=== PATIENT | male | born 1995 | race African-American/Black ===

== ENCOUNTER 2017-07-17 10:33 | Emergency (ER) | payer SELFPAY ==
[2017-07-17] MEDS: PENICILLIN G BENZATHINE LA 1,200,000 UNIT/2 ML DISP.SYRIN. IM (11:14)
== END 2017-07-17 11:16 | disposition home or self-care (01) ==
LOC: ER 10:33
DX: J02.0 Streptococcal pharyngitis (principal)
CPT/HCPCS: 96372; 99283; J0561

== ENCOUNTER 2018-05-22 00:49 | Emergency (ER) | payer SELFPAY ==
[~2018-05-22] VITALS: Ht 182.9 cm; Wt 104.3 kg
[~2018-05-22 00:49] MED LIST: IBUP-1007 PO
[2018-05-22 01:00] VITALS: BP 143/77
--- NOTE | 2018-05-22 01:07 | PHYS DOC ---
Past Medical History Past Medical History: No Pertinent History Past Surgical History: No Surgical History Alcohol Use: None Drug Use: None Adult General Chief Complaint Chief Complaint: ANKLE PROBLEM HPI HPI Patient is a 23 year old [-[place] male presents with an acute isolated left ankle injury. Patient was walking upstairs when he cut his toe inverted and twisted his left ankle. Injury occurred hours prior to ED arrival. Patient reports pain with ambulation. No other acute symptoms or complaints.[] Review of Systems Review of Systems Review symptoms as per history of present illness. All other review symptoms are negative. All other systems were reviewed and found to be within normal limits, except as documented in this note. Current Medications Current Medications Current Medications Medications (Trade) Dose Ordered Sig/Ling Start Time Stop Time Status Last Admin Dose Admin Ibuprofen (Motrin) 600 mg 1X ONCE 05/22/18 01:15 05/22/18 01:16 DC 05/22/18 01:15 600 MG Oxycodone/ Acetaminophen (Percocet 10325) 1 tab 1X ONCE 05/22/18 01:15 05/22/18 01:16 DC 05/22/18 01:15 1 TAB Allergies Allergies Allergies Coded Allergies Type Severity Reaction Last Updated Verified No Known Drug Allergies 03/03/16 No Physical Exam Physical Exam Constitutional: Well developed, well nourished, moderate discomfort secondary to pain. [] Extremities: No tenderness, ankle, lateral malleolus tenderness swelling, no deformity, motor function intact. Pulses 2+. Lantus testing not performed due to patient discomfort.[] Neurologic: Alert and oriented X 3, normal motor function, normal sensory function, no focal deficits noted. [] Psychologic: Affect normal, judgement normal, mood normal. [] Current Patient Data Vital Signs Vital Signs Date Time Temp Pulse Resp B/P (MAP) Pulse Ox O2 Delivery O2 Flow Rate FiO2 05/22/18 01:15 Room Air 05/22/18 01:00 98.6 93 143/77 (99) 99 98.6 EKG EKG [] Radiology/Procedures Radiology/Procedures [Left ankle x-ray: No obvious displaced fracture on preliminary ED review.] Course & Med Decision Making Course & Med Decision Making Pertinent Labs and Imaging studies reviewed. (See chart for details) [Patient pain controlled, splint placed, patient instructed to remain nonweightbearing and follow-up with PCP for work release. ] Dragon Disclaimer Dragon Disclaimer This electronic medical record was generated, in whole or in part, using a voice recognition dictation system. Departure Departure Impression: Primary Impression: Sprain of left ankle Disposition: HOME, SELF-CARE Condition: GOOD Referrals: NO PCP (PCP) Scripts Hydrocodone/Apap 10-325 (NORCO 10-325 TABLET) 1 Each Tablet 1 TAB PO Q8HRS PRN for PAIN MDD 6, #10 TAB 0 Refills Prov: SCOT CHOPRA DO 05/22/18 SCOT CHOPRA DO May 22, 2018 01:07
[2018-05-22] MEDS ORDERED: oxyCODONE/APAP 10/325 1 TAB TABLET PO ONE (01:15)
[2018-05-22] MEDS ORDERED: IBUPROFEN 600 MG TABLET. PO ONE (01:15)
[2018-05-22] MEDS ORDERED: HYDR-3135 PO (01:33)
--- NOTE | 2018-05-22 03:10 | RAD ---
Left ankle 3 views. HISTORY: Pain, trauma 3 views were taken of the left ankle. There is not evidence of an acute fracture or acute osseous abnormality. There is mild soft tissue swelling. IMPRESSION: 1. No acute fracture noted in the left ankle. Electronically signed by: Williams Richards MD (05/22/2018 3:05 AM) [facility]
== END 2018-05-22 02:10 | disposition home or self-care (01) ==
LOC: ER 00:49
DX: S93.492A Sprain of other ligament of left ankle, initial encounter (principal); X50.1XXA Overexertion from prolonged static or awkward postures, initial encounter; Y93.01 Activity, walking, marching and hiking; Y92.89 Other specified places as the place of occurrence of the external cause; Y99.8 Other external cause status
CPT/HCPCS: 29515; 73610; 99283

== ENCOUNTER → 2020-08-30 | Outpatient (CLI) | payer BC ==
[~2020-08-30] MED LIST changes: +HYDR-3135 PO
--- NOTE | 2020-08-30 13:42 | KCIC ---
EXAM: Chest, 2 views. HISTORY: Cough. COMPARISON: None. FINDINGS: 2 views of the chest are obtained. There is no infiltrate, pleural effusion or pneumothorax . The heart is normal in size. IMPRESSION: No acute pulmonary finding. Electronically signed by: Lia Mcpherson MD (08/30/2020 1:39 PM) [id number]
== END ==
LOC: KCIC 13:01
PROVIDERS: ATTEND Family Medicine
DX: R05 Cough (principal)
CPT/HCPCS: 71046

== ENCOUNTER 2021-02-10 07:01 | Emergency (ER) | payer BC ==
[~2021-02-10] VITALS: Ht 185.4 cm; Wt 109.4 kg
--- NOTE | 2021-02-10 08:29 | ED.ADGEN ---
Past Medical History Past Medical History: No Pertinent History Past Surgical History: No Surgical History Smoking Status: Current Every Day Smoker Additional Information: smokes marijuana occasionally Alcohol Use: None Drug Use: None Social History Narrative: weekly General Adult EDM: Chief Complaint: ABDOMINAL PAIN HPI: HPI: Patient is a 25 year old male coming in for abdominal pain and diarrhea for the past 3 days. Patient presents today to be sent home from work due to the pain. Patient states he was afebrile at his work temperature scanner but has a temperature of 101 here. Patient states the diarrhea is nonmelanous or bloody but has had small amount of bleeding from his rectum and pain. Patient has any nausea or vomiting, denies any change in urination or hematuria, denies any cough. Patient does not have his Covid vaccines. He states that night before his symptoms began he had had a medium pressure steak. Review of Systems: Review of Systems: All other systems within normal limits except for as noted in the HPI Current Medications: Current Medications Medications (Trade) Dose Ordered Sig/Ling Start Time Stop Time Status Last Admin Dose Admin Iohexol (Omnipaque 300 Mg/ml) 75 ml 1X ONCE 02/10/21 09:30 02/10/21 09:31 DC 02/10/21 09:29 75 ML Ketorolac Tromethamine (Toradol 15mg Vial) 15 mg 1X ONCE 02/10/21 09:15 02/10/21 09:16 DC 02/10/21 09:18 15 MG Allergies: Allergies: Allergies Coded Allergies Type Severity Reaction Last Updated Verified No Known Drug Allergies 02/10/21 No Physical Exam: PE: Constitutional: Well developed, well nourished, no acute distress, non-toxic appearance. [] HENT: Normocephalic, atraumatic, bilateral external ears normal, nose normal. [] Eyes: PERRLA, conjunctiva normal, no discharge. [] Neck: No rigidity, supple, no stridor. [] Cardiovascular: Regular rate and rhythm, brisk cap refill [] Lungs & Thorax: Non labored symmetric respirations, no tachypnea or respiratory distress [] Abdomen: Soft, nondistended, epigastric tenderness without guarding or rebound.. Skin: Warm, dry, no erythema, no rash. [] Back: Unremarkable Extremities: No deformities, range of motion grossly intact, no lower extremity edema [] Neurologic: Alert and oriented X 3, no focal deficits noted. [] Psychologic: Affect normal, judgement normal, mood normal. [] Current Patient Data: Labs: Laboratory Tests Test 02/10/21 08:05 02/10/21 09:00 White Blood Count 12.5 x10^3/uL (4.0-11.0) H Red Blood Count 4.66 x10^6/uL (4.30-5.70) Hemoglobin 13.9 g/dL (13.0-17.5) Hematocrit 40.3 % (39.0-53.0) Mean Corpuscular Volume 87 fL (79-100) Mean Corpuscular Hemoglobin 30 pg (25-35) Mean Corpuscular Hemoglobin Concent 35 g/dL (31-37) Red Cell Distribution Width 13.5 % (11.5-14.5) Platelet Count 235 x10^3/uL (140-400) Neutrophils (%) (Auto) 82 % (31-73) H Lymphocytes (%) (Auto) 7 % (24-48) L Monocytes (%) (Auto) 11 % (0-9) H Eosinophils (%) (Auto) 0 % (0-3) Basophils (%) (Auto) 0 % (0-3) Neutrophils # (Auto) 10.3 x10^3/uL (1.8-7.7) H Lymphocytes # (Auto) 0.9 x10^3/uL (1.0-4.8) L Monocytes # (Auto) 1.3 x10^3/uL (0.0-1.1) H Eosinophils # (Auto) 0.0 x10^3/uL (0.0-0.7) Basophils # (Auto) 0.0 x10^3/uL (0.0-0.2) Sodium Level 139 mmol/L (136-145) Potassium Level 3.5 mmol/L (3.5-5.1) Chloride Level 103 mmol/L (98-107) Carbon Dioxide Level 26 mmol/L (21-32) Anion Gap 10 (6-14) Blood Urea Nitrogen 9 mg/dL (8-26) Creatinine 0.9 mg/dL (0.7-1.3) Estimated GFR (Cockcroft-Gault) 124.4 BUN/Creatinine Ratio 10 (6-20) Glucose Level 115 mg/dL (70-99) H Calcium Level 9.0 mg/dL (8.5-10.1) Total Bilirubin 0.4 mg/dL (0.2-1.0) Aspartate Amino Transferase (AST) 23 U/L (15-37) Alanine Aminotransferase (ALT) 33 U/L (16-63) Alkaline Phosphatase 67 U/L (46-116) Total Protein 7.5 g/dL (6.4-8.2) Albumin 3.7 g/dL (3.4-5.0) Albumin/Globulin Ratio 1.0 (1.0-1.7) Lipase 90 U/L (73-393) Urine Collection Type Void Urine Color Yellow Urine Clarity Clear Urine pH 7.0 (<5.0-8.0) Urine Specific [place] 1.025 (1.000-1.030) Urine Protein Negative mg/dL (NEG-TRACE) Urine Glucose (UA) Negative mg/dL (NEG) Urine Ketones (Stick) Negative mg/dL (NEG) Urine Blood Negative (NEG) Urine Nitrite Negative (NEG) Urine Bilirubin Negative (NEG) Urine Urobilinogen Dipstick 0.2 mg/dL (0.2 mg/dL) Urine Leukocyte Esterase Negative (NEG) Urine RBC 0 /HPF (0-2) Urine WBC Occ /HPF (0-4) Urine Bacteria 0 /HPF (0-FEW) Urine Mucus Marked /LPF Laboratory Tests 02/10/21 08:05 Laboratory Tests 02/10/21 08:05 Vital Signs: Vital Signs Date Time Temp Pulse Resp B/P (MAP) Pulse Ox O2 Delivery O2 Flow Rate FiO2 02/10/21 09:34 94 16 146/70 (95) 98 Room Air 02/10/21 07:49 101.0 101.0 EKG: EKG: [] Heart Score: C/O Chest Pain: No Risk Factors: Risk Factors: DM, Current or recent (<one month) smoker, HTN, HLP, family history of CAD, obesity. Risk Scores: Score 0 - 3: 2.5% MACE over next 6 weeks - Discharge Home Score 4 - 6: 20.3% MACE over next 6 weeks - Admit for Clinical Observation Score 7 - 10: 72.7% MACE over next 6 weeks - Early Invasive Strategies Radiology/Procedures: Radiology/Procedures: [facility] [address] [place] [address] IMAGING REPORT Signed PATIENT: KAYY OSBORNACCOUNT: [id number] : 1995 LOCATION: ER AGE: 25 SEX: M EXAM STATUS: REG ER ORD. PHYSICIAN: NATA GOMEZ MD REASON: abd pain, diarhea PROCEDURE: CT ABD PELV W/ IV CONTRST ONLY INDICATION: Reason: abd pain, diarhea / Spl. Instructions: OMNI 300 INJ. 75 MLS / History: COMPARISON: None. TECHNIQUE: Axial CT images were obtained through the abdomen and pelvis with intravenous contrast. One or more of the following individualized dose reduction techniques were utilized for this examination: 1. Automated exposure control; 2. Adjustment of the mA and/or kV according to patient size; 3. Use of iterative reconstruction technique. FINDINGS: Vascular: No abdominal aortic aneurysm. Hepatobiliary: No intrahepatic biliary duct dilation. Pancreas: No peripancreatic edema. Spleen: Spleen unremarkable. Renal: No hydronephrosis. Bladder: Decompressed therefore not well evaluated. Gastrointestinal: Colon is not very distended but there is some wall thickening seen throughout a large portion of the colon bilaterally No periappendiceal inflammatory changes. Small fat-containing umbilical hernia. IMPRESSION: * The colon is not very distended but there is prominence the wall seen throughout the colon. Would correlate with symptoms since causes such as colitis could have this appearance. Electronically signed by: Simon Olmos MD (02/10/2021 9:54 AM) [id number] DICTATED and SIGNED BY: SIMON OLMOS MD DATE: 02/10/21 [id number] [] Course & Med Decision Making: Course & Med Decision Making Pertinent Labs and Imaging studies reviewed. (See chart for details) [] Dragon Disclaimer: Dragon Disclaimer: This electronic medical record was generated, in whole or in part, using a voice recognition dictation system. Departure Departure Impression: Primary Impression: Colitis Additional Impression: Person under investigation for COVID-19 Referrals: Virgie PALMA MD (PCP) Patient Instructions: Diet for Diarrhea, Adult Additional Instructions: You have been tested for or diagnosed with COVID-19. It is an infection caused by a new type of coronavirus. COVID-19 will cause cold-like or mild flu symptoms in most. It can cause more severe symptoms like problems breathing in some. There is no treatment for COVID-19. The body will clear the infection over time. Self-care will help to ease discomfort. Steps to Take: Self-Care Rest as needed. Healthy habits may help you feel better. Steps include: Choose healthy foods including fruits and vegetables. Drink water throughout the day. Get plenty of sleep each night. If you smoke, try to quit. It may ease breathing. Avoid alcohol. Keep Others Healthy The virus can spread to others. Droplets are released every time you sneeze or cough. The droplets can get into the mouth, nose, or eyes of people near you and lead to infection. To lower the chances of spreading COVID-19 to others: Stay at home until your doctor has said it is safe to leave. If you tested positive this will mean staying isolated until both of the following are true: At least 7 days have passed since the start of illness. You are free of fever for at least 72 hours without the use of medicine. During this time: - Avoid public areas, events, or transportation. Do not return to work or school until your doctor has said it is safe to do so. - Call ahead if you need to go to a medical center. Let them know you may have COVID-19. It will help them guide you where to go. They may also ask you to wear a facemask when you come to the office. - If you call for emergency medical services, let them know you may have COVID- 19. While at home: - Try to avoid close contact with others. Stay about 6 feet away. - If possible, spend most of your time in a separate room from others. - Use a face mask if you will be in close contact with others such as sharing a room or vehicle. - Have someone wipe down common surfaces in the home. Use household gm every day on areas like doorknobs, counters, or sinks. - Cough or sneeze into a tissue. Throw the tissue away right after use. If a tissue is not available, cough or sneeze into your elbow. - Wash your hands often. Wash them after sneezing or coughing. Use soap and water and wash for at least 20 seconds. Alcohol based hand last cleaner can be used if soap and water is not available. - Do not prepare food for others. Avoid sharing personal items like forks, spoons, or toothbrushes. - Avoid close contact with pets while you are sick. There is no evidence of the virus passing to pets. This is a safety step until more is known about this virus. Isolation can be frustrating. Social interaction can help. Keep in touch with friends and family through phone and tech options. You can still interact with others in your home, just keep a safe distance of about 6 feet. Follow-up: Your doctors office will check in with you to see if there are any changes in your health. You may be asked to keep track of symptoms to share with them. They will also let you know when you are clear to be in public again. Problems to Look Out For: Contact your doctor if your recovery is not going as you expect. Get emergency care if you have problems such as: - Trouble breathing - Nonstop chest pain or pressure - Changes in awareness, confusion, or problems waking - Lips or face have bluish color - Worsening of symptoms If you think you have an emergency, call for emergency medical services right away. As taken from [employer] [facility] Dicyclomine Hcl (DICYCLOMINE HCL) 10 Mg Capsule 1 CAP PO PRN Q6HRS PRN for ABDOMINAL CRAMPS for 5 Days, #15 CAP 3 Refills Prov: NATA GOMEZ MD 02/10/21 Problem Qualifiers NATA GOMEZ MD Feb 10, 2021 08:29
[2021-02-10 08:47] LABS: CREATININE 0.9 mg/dL (0.7-1.3); GFR 124.4; POTASSIUM 3.5 mmol/L (3.5-5.1)
[2021-02-10 08:50] LABS: BASO % 0 % (0-3); EOS % 0 % (0-3); HEMATOCRIT 40.3 % (39.0-53.0); HEMOGLOBIN 13.9 g/dL (13.0-17.5); LYMPH # 0.9 x10^3/uL (1.0-4.8); LYMPH % 7 % (24-48); MEAN CORPUSCULAR HEMOGLOBIN 30 pg (25-35); MEAN CORPUSCULAR HGB CONC 35 g/dL (31-37); MEAN CORPUSCULAR VOLUME 87 fL (79-100); MONO # 1.3 x10^3/uL (0.0-1.1); MONO % 11 % (0-9); NEUT # 10.3 x10^3/uL (1.8-7.7); NEUT % 82 % (31-73); PLATELET COUNT 235 x10^3/uL (140-400); RED BLOOD COUNT 4.66 x10^6/uL (4.30-5.70); RED CELL DISTRIBUTION WIDTH 13.5 % (11.5-14.5); WHITE BLOOD COUNT 12.5 x10^3/uL (4.0-11.0)
[2021-02-10 08:53] LABS: ALBUMIN 3.7 g/dL (3.4-5.0); TOTAL BILIRUBIN 0.4 mg/dL (0.2-1.0); TOTAL PROTEIN 7.5 g/dL (6.4-8.2)
[2021-02-10 09:15] LABS: BILIRUBIN,URINE NEGATIVE (NEG); CLARITY,URINE CLEAR; COLOR,URINE YELLOW; NITRITE,URINE NEGATIVE (NEG); PROTEIN,URINE NEGATIVE (NEG-TRACE); UROBILINOGEN,URINE 0.2 mg/dL (0.2 mg/dL)
[2021-02-10] MEDS ORDERED: KETOROLAC 15 MG/ML VIAL. IVP ONE (09:15)
[2021-02-10 09:30] LABS: BACTERIA,URINE 0 /HPF (0-FEW); RBC,URINE 0 /HPF (0-2); WBC,URINE OCC /HPF (0-4)
[2021-02-10] MEDS ORDERED: IOHEXOL 300 MG/ML 100ML VIAL. IV ONE (09:30)
--- NOTE | 2021-02-10 09:56 | RAD ---
INDICATION: Reason: abd pain, diarhea / Spl. Instructions: OMNI 300 INJ. 75 MLS / History: COMPARISON: None. TECHNIQUE: Axial CT images were obtained through the abdomen and pelvis with intravenous contrast. One or more of the following individualized dose reduction techniques were utilized for this examinat ion: 1. Automated exposure control; 2. Adjustment of the mA and/or kV according to patient size; 3 . Use of iterative reconstruction technique. FINDINGS: Vascular: No abdominal aortic aneurysm. Hepatobiliary: No intrahepatic biliary duct dilation. Pancreas: No peripancreatic edema. Spleen: Spleen unremarkable. Renal: No hydronephrosis. Bladder: Decompressed therefore not well evaluated. Gastrointestinal: Colon is not very distended but there is some wall thickening seen throughout a lar ge portion of the colon bilaterally No periappendiceal inflammatory changes. Small fat-containing umbilical hernia. IMPRESSION: * The colon is not very distended but there is prominence the wall seen throughout the colon. Would correlate with symptoms since causes such as colitis could have this appearance. Electronically signed by: Herbie Bennett MD (02/10/2021 9:54 AM) [id number]
[2021-02-10] MEDS ORDERED: DICY10CA3 PO (10:46)
[2021-02-10 11:00] VITALS: BP 146/77
--- NOTE | 2021-02-10 16:00 | NUR ---
IP: Patient notified of negative COVID19 test results. Verbalized understanding.
== END 2021-02-10 11:01 | disposition home or self-care (01) ==
LOC: ER 07:01
DX: K52.9 Noninfective gastroenteritis and colitis, unspecified (principal); F17.200 Nicotine dependence, unspecified, uncomplicated; Z20.822 Contact with and (suspected) exposure to COVID-19
CPT/HCPCS: 36415; 74177; 80053; 81001; 83690; 85025; 96374; 99285; J1885; Q9967; U0003; U0005

== ENCOUNTER 2021-08-02 01:51 | Emergency (ER) | payer BC, OTHER ==
[~2021-08-02] VITALS: Ht 185.4 cm; Wt 110.0 kg
[~2021-08-02 01:51] MED LIST changes: +DICY10CA3 PO
[2021-08-02] MEDS ORDERED: DEXAMETHASONE SOD PHOS 4 MG/ML VIAL PO ONE (02:45)
[2021-08-02 03:09] LABS: MONONUCLEOSIS PATIENT NEGATIVE (NEGATIVE)
--- NOTE | 2021-08-02 03:12 | PHYS DOC ---
Past Medical History Past Medical History: No Pertinent History Past Surgical History: No Surgical History Smoking Status: Never Smoker Alcohol Use: None Drug Use: None General Adult EDM: Chief Complaint: SORE THROAT HPI: HPI: Patient is a 26 year old male who presents with sore thorat. He first noticed his symptoms on 07/30. He describes the sore throat as a sharp and burning sensation and the pain worsens when he swallows solids and liquids. He presented to an urgent clinic on 08/01 where he was diagnosed with URI and was given benzonatate. Also, he was swabbed for COVID which was negative. Later in the day, he experienced reflux which exacerabated his throat pain. Also, he re ports lower back pain. Associated symptoms include cough, nausea, vomiting, and abdominal pain. He denies fevers, chills, myalgia, CP, SOB. Review of Systems: Review of Systems: Constitutional: Denies fever or chills. Eyes: Denies change in visual acuity. HENT: Denies nasal congestion. Positive for sore throat. Positive for neck pain Respiratory: Positive for cough. Denies shortness of breath. Cardiovascular: Denies chest pain or edema. GI: Denies Positive for abdominal pain, nausea, vomiting. Denies bloody stools. : Denies dysuria. Musculoskeletal: Positive for lower back pain Integument: Denies rash. Neurologic: Denies headache, focal weakness or sensory changes. Endocrine: Denies polyuria or polydipsia. Lymphatic: Positive for swollen glands. Psychiatric: Denies depression or anxiety. Heart Score: C/O Chest Pain: N/A Risk Factors: Risk Factors: DM, Current or recent (<one month) smoker, HTN, HLP, family history of CAD, obesity. Risk Scores: Score 0 - 3: 2.5% MACE over next 6 weeks - Discharge Home Score 4 - 6: 20.3% MACE over next 6 weeks - Admit for Clinical Observation Score 7 - 10: 72.7% MACE over next 6 weeks - Early Invasive Strategies Current Medications: Current Medications Medications (Trade) Dose Ordered Sig/Ling Start Time Stop Time Status Last Admin Dose Admin Dexamethasone Sodium Phosphate (Decadron) 10 mg 1X ONCE 08/02/21 02:45 08/02/21 02:48 DC Allergies: Allergies: Allergies Coded Allergies Type Severity Reaction Last Updated Verified No Known Drug Allergies 08/02/21 No Physical Exam: PE: Constitutional: Well developed, no distress, alert, awake HENT: Normocephalic, atraumatic, bilateral external ears normal, oropharynx moist, enlarged bilateral tonsils, no exudates Eyes: PERRLA, EOMI, conjunctiva normal, no discharge. Neck: Normal range of motion, tender to palpation, supple, no stridor, enlarged and painful lymph node on the right side of the neck Cardiovascular:Heart rate regular rhythm, no murmur Lungs & Thorax: Bilateral breath sounds clear to auscultation, no rales or wheezing Abdomen: Bowel sounds normal, soft, no tenderness, no masses, no pulsatile masses. Skin: Warm, dry, no erythema, no rash. Back: tender to palpation in the lower back, no CVA tenderness. Extremities: No tenderness, no cyanosis, no clubbing, ROM intact, no edema. Neurologic: Alert and oriented X 3, normal motor function, normal sensory func tion, no focal deficits noted. Psychologic: Affect normal, judgement normal, mood normal. Current Patient Data: Vital Signs: Vital Signs Date Time Temp Pulse Resp B/P (MAP) Pulse Ox O2 Delivery O2 Flow Rate FiO2 08/02/21 02:00 99.7 109 18 138/71 (93) 99 Room Air 99.7 EKG: EKG: [] Radiology/Procedures: Radiology/Procedures: [] Course & Med Decision Making: Course & Med Decision Making Pertinent Labs and Imaging studies reviewed. (See chart for details) []treated with decardon. Strep negative Sawyer pending. Rx zithromax. Dragon Disclaimer: Brandon Disclaimer: This electronic medical record was generated, in whole or in part, using a voice recognition dictation system. Departure Departure Impression: Primary Impression: Pharyngitis Disposition: HOME / SELF CARE / HOMELESS Condition: STABLE Referrals: Virgie PALMA MD (PCP) Patient Instructions: Viral and Bacterial Pharyngitis Scripts Azithromycin (ZITHROMAX) 250 Mg Tablet 1 PKG PO UD, #6 TAB Prov: IZZY SALAS I DO 08/02/21 IZZY SALAS I DO Aug 02, 2021 03:12
[2021-08-02] MEDS ORDERED: AZIT250T PO (03:16)
[2021-08-02 03:31] VITALS: BP 138/71
== END 2021-08-02 03:30 | disposition home or self-care (01) ==
LOC: ER 01:51
DX: J02.9 Acute pharyngitis, unspecified (principal); R30.0 Dysuria; M54.50 Low back pain, unspecified; R05.9 Cough, unspecified; R11.2 Nausea with vomiting, unspecified; R06.02 Shortness of breath; M54.2 Cervicalgia
CPT/HCPCS: 86308; 87070; 87880; 99283; J1100